=== PATIENT | male | born 1990 | race African-American/Black ===

== ENCOUNTER 2017-01-17 16:40 | Inpatient (IN) | payer SELFPAY ==
[~2017-01-17 16:40] MED LIST: Glycopyrrolate 0.2 MG/ML 5 ML SYRINGE ONE; PHENYLEPHRINE-NS 100 MCG/ML 10 ML SYRINGE ONE; Propofol 200 MG/20 ML VIAL ONE; Succinylcholine Chloride 20 MG/ML 10 ml SYRINGE FS ONE; ePHEDrine/0.9% NaCl/PF SYRINGE 50 mg/10 ml ONE
[2017-01-17] MEDS ORDERED: Iopamidol 370 76% 50 ML VIAL FS ONE (17:24)
[2017-01-17 17:31] LABS: #Basophils 0.1 thou/uL (0.0-0.2); #Eosinphils 0.1 thou/uL (0.0-0.7); #Monocytes 0.7 thou/uL (0.11-0.59); #Neutrophils 1.8 thou/uL (1.40-6.50); %Basophils 1.5 % (0.0-1.0); %Eosinophils 3.1 % (0.0-10.0); %Lymphocytes 42.1 % (21.0-51.0); %Monocytes 14.4 % (0.0-10.0); Hematocrit 50.1 % (42.0-52.0); Mean Platelet Volume 7.9 fL (7.4-10.4); Red Blood Cell (RBC) Count 5.19 mill/uL (4.70-6.10); White Blood Cell (WBC) Count 4.7 thou/uL (4.8-10.8)
[2017-01-17 17:49] LABS: ALT (SGPT) 11 U/L (8-55); AST (SGOT) 21 U/L (5-34); Alkaline Phosphatase 67 U/L (40-150); Anion Gap 11 mmol/L (10-20); BUN (Urea Nitrogen) 18 mg/dL (8.9-20.6); Bilirubin, Total 0.5 mg/dL (0.2-1.2); CK (CPK) 267 U/L (30-200); Calc. Creatinine Clearance 0 mL/min (70-130); Calcium 9.5 mg/dL (7.8-10.44); Carbon Dioxide 30 mmol/L (22-29); Chloride 103 mmol/L (98-107); Estimated GFR-MDRD Greater than 90; Globulin 3.1 g/dL (2.4-3.5); Protein, Total 7.2 g/dL (6.0-8.3)
--- NOTE | 2017-01-17 18:07 | CT ---
CT BRAIN WITHOUT CONTRAST: History: Altered mental status. Date: 01-17-17 FINDINGS: Noncontrast enhanced CT images of the brain obtained. Brain and bone windows obtained. The brain is unremarkable. No evidence of intracranial masses, hemorrhages, strokes or contusions see n. IMPRESSION: Normal CT brain. POS: [facility]
[2017-01-17] MEDS ORDERED: Aspirin 300 MG Suppository ONE (18:43)
[2017-01-17 18:53] LABS: PTT 25.3 SEC (22.9-36.1); Prothrombin Time 12.9 SEC (12.0-14.7)
--- NOTE | 2017-01-17 19:52 | RAD ---
AP PORTABLE CHEST: History: Stroke. Altered mental status. FINDINGS: The lungs are well aerated. No evidence of active intrathoracic disease is seen. No evidence of effus ions, pneumonia or pneumothorax seen. IMPRESSION: Unremarkable AP chest. POS: [facility]
--- NOTE | 2017-01-17 20:08 | CT ---
CONTRAST ENHANCED CTA OF CAROTID AND INTRACRANIAL CTA: Date: 01-17-17 Technique: 2D and 3D reconstructed images performed on an independent 3D work station. FINDINGS: The aortic arch is unremarkable. The right and left common carotid arteries are unremarkable. Right a nd left vertebral arteries are patent. The right and left internal carotid arteries are patent. [place] CTA: The anterior cerebral arteries bilaterally are patent. The right supraclinoid ICA and right middle ce rebral artery are patent. The left internal carotid artery is patent. There is occlusion of the M1 branch of the left middle ce rebral artery. Some flow does appear to pass into the M2 and M3 branches on the left. The posterior c erebral arteries are patent. The right posterior communicating artery is difficult to visualize. The left posterior communicating artery is seen. IMPRESSION: 1. Findings concerning for abrupt cut off and clot in the left middle cerebral artery M1 branch. 2. Findings discussed with Dr. Moncada at 7:15 p.m. 01-17-17. Code CR. ADDENDUM: Brain perfusion study. Brain perfusion evaluation was performed. There is an area of increased mean transit time involving m uch of the left temporal lobe as well as the deep central brain including the basal ganglion. There i s also some increased cerebral blood volume in the left temporal lobe suggesting an area of at risk p enumbra. Findings discussed with Dr. Willard Donaldson at 7:55 p.m. on 01-17-17. Code CR. POS: [facility]
[2017-01-17 20:24] LABS: Bilirubin Negative (Negative); Blood, Urine Negative (Negative); Glucose, Urine (Dipstick) Negative (Negative); Ketone, Urine Negative (Negative); Nitrite Negative (Negative); Protein, Urine (Dipstick) Negative (Neg-Trace)
[2017-01-17 20:34] LABS: Amphetamine Not Detected (NotDetected); Methadone Not Detected (NotDetected); Methamphetamine Not Detected (NotDetected)
--- NOTE | 2017-01-17 20:42 | PDOC.EVN ---
Event Note - Event Note Event Note: [id number] H&P Dictated 1. Acute CVA 2. Altered mental status plan: see orders
[2017-01-17] MEDS ORDERED: Acetaminophen 650 MG Suppository PR PRN (20:50)
[2017-01-17 22:44] VITALS: BMI 26.5
[2017-01-17] MEDS: Sodium Chloride 0.9% 1,000 ML IV SCH (23:30)
--- NOTE | 2017-01-17 23:38 | CON ---
DATE OF CONSULTATION: 01/17/2017 Mr. Castillo is a 26-year-old male that presented to the emergency department with altered mental sta tus and weakness. Per the report of his friends, he was [place] where he began to experience changes in speech and weakness in his extremities. He was brought to the ER where he und erwent a noncontrast head CT which was negative for hemorrhage. Subsequent to that, he underwent CT angiography of the brain which revealed the presence of thrombus in the the distal aspect of the left M1 division of the middle cerebral artery. I spoke with the ER doctor at that time and we agreed to pursue TPA. He was close to 3 hours from the time of onset when TPA was administered. I then spoke with Saul Jett who read the patient's CT perfusion study which suggested a fairly significant s izable penumbra. I then met with the patient in the ER. The TPA had been administered. He had show n already some fairly significant improvement in his neurologic exam. He was antigravity on the righ t side at this point. He was able to make some coherent speech. He could answer questions such as h is name and date of . It was clear he still had some components of expressive and perhaps legal secretary receptionist tive aphasia. His speech was slightly dysarthric and he had a right-sided facial droop. Overall, kimble bstantial improvement in his exam, but nonetheless someone may benefit from angiography and potential ly endovascular treatment. I spoke with Mr. Castillo as well his live in friends about his current diagnosis and planned procedu re. Of note, he has no living or known family. I explained the risks, benefits, and alternatives to treatment. The plan will be to move forward with diagnostic angiography and then if need be mechani shanna thrombectomy.
[2017-01-18 05:50] LABS: #Basophils 0.1 thou/uL (0.0-0.2); #Eosinphils 0.1 thou/uL (0.0-0.7); #Lymphocytes 1.8 thou/uL (1.20-3.40); #Monocytes 0.8 thou/uL (0.11-0.59); #Neutrophils 5.1 thou/uL (1.40-6.50); %Basophils 1.3 % (0.0-1.0); %Eosinophils 1.3 % (0.0-10.0); %Lymphocytes 22.2 % (21.0-51.0); %Monocytes 10.5 % (0.0-10.0); Hematocrit 44.3 % (42.0-52.0); Mean Platelet Volume 8.2 fL (7.4-10.4); Red Blood Cell (RBC) Count 4.59 mill/uL (4.70-6.10); White Blood Cell (WBC) Count 7.9 thou/uL (4.8-10.8)
--- NOTE | 2017-01-18 06:03 | HP ---
DATE OF ADMISSION: 01/17/2017 CHIEF COMPLAINT: Aphasia, dysarthria, right-sided weakness. HISTORY OF PRESENT ILLNESS: The patient is a 26-year-old male with no significant past medical history. The patient was with friends in outside and all of sudden, the patient started having confusion and trouble speaking and patient's right side was weak, so patient was brought to the ER. Symptoms started around 4:00 p.m. Upon ER arrival, the patient was found to have severe aphasia and dysarthria also, and right-sided weakness in upper and lower extremity, so patient had a CT head done which was negative. The patient had a CTA head and neck was done, which showed he has a left MCA clot, so patient was given tPA. The patient's initial NIH score was 13. Patient's current NIH score is 11. Patient denies any headache, denies any nausea. Denies any vomiting. PAST MEDICAL HISTORY: None. PAST SURGICAL HISTORY: None. SOCIAL HISTORY: None available from the patient as having trouble speaking. FAMILY HISTORY: No family members available at this time. Girlfriend is the only one available at the bedside, so not able to get much for the family history. MEDICATIONS: None. REVIEW OF SYSTEMS: Unavailable from the patient due to difficulty speaking. PHYSICAL EXAMINATION: CONSTITUTIONAL/VITAL SIGNS: At the time of H and P performed, blood pressure is 110/70, afebrile, pulse ox 97%. GENERAL: The patient appears comfortable. HEENT: Anterior naris patent. Tongue, no deviation seen. Teeth intact. NECK: Supple. No JVD. CARDIOVASCULAR: S1, S2 present. Regular rate and rhythm. RESPIRATORY SYSTEM: No wheezing, no rhonchi. Breath sounds bilaterally. GASTROINTESTINAL: Abdomen is soft, nontender. No guarding, no organomegaly. MUSCULOSKELETAL: No edema. CRANIAL NERVOUS SYSTEM: Positive for sejuxary-zx-ejxniv aphasia, positive for aqyfcqne-ay-uwkalw dysarthria. Positive for right upper extremity weakness, strength 3-4/5. NIH score around 11. Able to follow some commands. PSYCHIATRIC: Mood, calm at this time. LABORATORY AND DIAGNOSTIC DATA: At the time of H and P performed, white count 4.7, hemoglobin 16.7, platelet count is 175. PT 12.9, INR 1. BMP shows sodium 141, potassium 3.4, chloride 103, CO2 of 30, BUN 18, creatinine 0.86, glucose is 92. CT head, no acute stroke seen. CTA head and neck, positive for left MCA clot. ASSESSMENT AND PLAN: The patient is a 26-year-old male. 1. Acute cerebrovascular accident and left middle cerebral artery clot. ED physician spoke to the neurointerventionalist, neuroradiologist, and also neurologist. Patient is currently getting tPA. We will go ahead and admit patient to the ICU for close monitoring. We will hold off blood thinners, aspirin for now because the patient is just receiving tPA. We will resume in the morning. We will get PT, OT, speech therapy evaluation also. 2. Altered mental status probably secondary to the stroke, but we will go ahead and check a urine drug screen also and we will monitor the patient closely. The case was discussed in detail with the patient and patient's friends also and advised him to call the patient's family members. NARENDRA
[2017-01-18 06:17] LABS: Anion Gap 8 mmol/L (10-20); BUN (Urea Nitrogen) 10 mg/dL (8.9-20.6); Calc. Creatinine Clearance 153 mL/min (70-130); Calcium 8.6 mg/dL (7.8-10.44); Carbon Dioxide 25 mmol/L (22-29); Chloride 109 mmol/L (98-107); Cholesterol 120 mg/dl (< 200 Desired); Estimated GFR-MDRD Greater than 90; LDL Cholesterol, Calculated 55 mg/dL
[2017-01-18] MEDS ORDERED: Acetaminophen 325 MG TAB PO PRN (06:56)
[2017-01-18] MEDS ORDERED: Senokot 8.6 MG TAB PO PRN (06:56)
[2017-01-18] MEDS ORDERED: Diabetic Tussin 200 MG/10 ML UDCUP PO PRN (06:56)
[2017-01-18] MEDS ORDERED: Milk Of Magnesia 30 ML UDCUP PO PRN (06:56)
[2017-01-18] MEDS ORDERED: Ondansetron HCl/PF 4 MG/2 ML Vial IVP PRN (06:56)
[2017-01-18] MEDS ORDERED: Loratadine 10 MG TAB PO PRN (06:56)
[2017-01-18] MEDS ORDERED: hydrALAZINE 20 MG/ML VIAL SLOW IVP PRN (06:56)
[2017-01-18] MEDS ORDERED: Artificial Tears 18 DROP/0.9 ML EA EYE PRN (06:56)
[2017-01-18] MEDS ORDERED: Eucerin (Mineral Oil/Petrolatum,White) 30 gm Jar TOP PRN (06:56)
[2017-01-18] MEDS ORDERED: Ondansetron ODT 4 MG TAB PO PRN (06:56)
[2017-01-18] MEDS ORDERED: Chloraseptic Spray 180 ml Bottle PO PRN (06:56)
[2017-01-18] MEDS ORDERED: Mag-Al 1200 mg/1200 mg/30 ML UDCUP PO PRN (06:56)
[2017-01-18] MEDS ORDERED: Sodium Chloride 0.65% Nasal 44 ML BOT EA NARE PRN (06:56)
[2017-01-18] MEDS: Sodium Chloride 0.9% 1,000 ML IV SCH ×2 (09:05→18:37)
[2017-01-18] MEDS: Famotidine/PF 20 mg/2ml Vial SLOW IVP SCH ×2 (09:06→21:12)
--- NOTE | 2017-01-18 10:42 | CON ---
DATE OF CONSULTATION: 01/18/2017 This is a 26-year-old gentleman, rather unfortunate history, brought into the ER with acute mental st atus change, vomiting, and some weakness right-sided. Apparently he has been vomiting for several days as per the history additionally noted by the ER phys jerrod, Dr. Moncada. There is no history of any alcohol, drug abuse or tobacco abuse. MEDICATION: No medicine was listed on his list. EKG was abnormal. He was confused in the ER. EKG shows rather unusual pattern. Ventricular rate wa s 52. Unusual P-wave, abnormal T-wave. Apparently the case was discussed with Neurology and Neurosurgery. He was given Activase per protoco l and, he was taken to the Laser Set Up Operator by Dr. Donaldson for clot with , left middle cerebral artery isc hemic stroke. PHYSICAL EXAMINATION: GENERAL: This morning he is awake, responsive. VITAL SIGNS: Pulse 47, blood pressure 110/59, O2 saturation 100%. CHEST: Chest reveals decreased breath sounds, no wheezing. CARDIAC: Normal S1, S2. No gallops. ABDOMEN: Soft, no masses. LABORATORY: White count 7000, H&H 14 and 43, platelet count 160. Electrolytes are normal. Drug screen was positive for cannabinoids. IMPRESSION: 1. Altered mental status, status post t-PA. 2. CT angiographic revealed a thrombus in the distal middle cerebral artery which was retrieved by Elizabeth Donaldson. PLAN: Continue observation in the ICU. Low dose aspirin, supportive care. I will follow while in the ICU.
--- NOTE | 2017-01-18 11:00 | PDOC.PN ---
- Subjective Encounter Start Date: 01/18/17 Encounter Start Time: 09:10 -: non-verbal, old records requested/rev pt unable to speak, sister bedside, has right side weakness - Objective Resuscitation Status: Resuscitation Status FULL:Full Resuscitation MAR Reviewed: Yes Vital Signs & Weight: Vital Signs (12 hours) Temp Pulse Resp Pulse Ox 01/18/17 08:11 100 01/18/17 07:20 97.7 F 47 L 17 100 01/18/17 07:00 98.1 F 01/18/17 04:00 98.6 F 01/18/17 01:22 98 01/18/17 00:00 98.2 F 57 L 20 99 Most Recent Monitor Data Heart Rate from ECG 47 NIBP 107/66 NIBP BP-Mean 89 Respiration from ECG 13 SpO2 100 I&O: 01/17/17 01/18/17 01/19/17 06:59 06:59 06:59 Intake Total 783 0 Output Total 815 210 Balance -32 -210 Result Diagrams: 01/18/17 05:25 01/18/17 05:25 Radiology Reviewed by me: Yes (CT A brain) EKG Reviewed by me: Yes (NSR) Phys Exam - Physical Examination Constitutional: NAD HEENT: PERRLA, moist MMs, sclera anicteric Neck: no JVD, supple Respiratory: no wheezing, no rales, no rhonchi Cardiovascular: RRR, no significant murmur, no rub Gastrointestinal: soft, non-tender, no distention, positive bowel sounds Musculoskeletal: no edema, pulses present right side weakness, aphasia Lymphatic: no nodes Psychiatric: normal affect Skin: no rash, normal turgor Dx/Plan (1) Acute ischemic left middle cerebral artery (MCA) stroke Code(s): I63.512 - CEREB INFRC D/T UNSP OCCLS OR STENOS OF LEFT MID CEREB ART Status: Acute (2) Cannabis abuse Code(s): F12.10 - CANNABIS ABUSE, UNCOMPLICATED Status: Chronic (3) Hypokalemia Code(s): E87.6 - HYPOKALEMIA Status: Resolved - Plan cont current plan of care, plan discussed w/ family, PT/OT, oncology social work, speech therapy * will send hypercoagulable work up * will monitor in CCU till tomorrow * neurology consulted * MRI and echo. * check CORI, homocystein, RPR * discussed with sister * medication reviewed as below * symptomatic treatment Review of Systems - Review of Systems Other: unable to review as pt is aphasic - Medications/Allergies Allergies/Adverse Reactions: Allergies Allergy/AdvReac Type Severity Reaction Status Date / Time No Known Drug Allergies Allergy Verified 01/17/17 21:29 Medications: Current Medications Acetaminophen (Tylenol) 650 mg AK Q6H PRN PRN Reason: Headache/Fever or Pain Acetaminophen (Tylenol) 650 mg PO Q4H PRN PRN Reason: Headache/Fever or Mild Pain Al Hydroxide/Mg Hydroxide (Maalox) 15 ml PO Q4H PRN PRN Reason: Heartburn or Indigestion Artificial Tears (Tears Naturale) 0 drop EA EYE PRN PRN PRN Reason: Dry Eyes Famotidine (Pepcid) 20 mg SLOW IVP Q12HR [facility] Last Admin: 01/18/17 09:06 Dose: 20 mg Guaifenesin (Robitussin Sf) 200 mg PO Q4H PRN PRN Reason: Cough Hydralazine HCl (Apresoline) 10 mg SLOW IVP Q4H PRN PRN Reason: Systolic BP > 180 Sodium Chloride (Normal Saline 0.9%) 1,000 mls @ 100 mls/hr IV .Q10H [facility] Last Admin: 01/18/17 09:05 Dose: 1,000 mls Influenza Virus Vaccine (Fluzone Quad [id number] Syringe) 0.5 ml IM .ONCE ONE Stop: 01/18/17 21:01 Loratadine (Claritin) 10 mg PO DAILYPRN PRN PRN Reason: Sinus Symptoms Magnesium Hydroxide (Milk Of Magnesium) 30 ml PO DAILYPRN PRN PRN Reason: Constipation Mineral Oil/White Petrolatum (Eucerin Cream) 0 gm TOP BIDPRN PRN PRN Reason: Dry Skin Ondansetron HCl (Zofran Odt) 4 mg PO Q6H PRN PRN Reason: Nausea/Vomiting Ondansetron HCl (Zofran) 4 mg IVP Q6H PRN PRN Reason: Nausea/Vomiting Phenol (Chloraseptic [place] 180 Ml Bot) 0 ml PO PRN PRN PRN Reason: Sore Throat Senna (Senokot) 2 tab PO HSPRN PRN PRN Reason: Constipation Sodium Chloride (Labette Nasal [place] 0.65%) 0 ml EA NARE QIDPRN PRN PRN Reason: Nasal Congestion Sodium Chloride (Flush - Normal Saline) 10 ml IVF Q12HR [facility] Sodium Chloride (Flush - Normal Saline) 10 ml IVF PRN PRN PRN Reason: Saline Flush
--- NOTE | 2017-01-18 14:01 | CCL ---
RADIOLOGY PROCEDURE NOTE: DATE: 01/17/17. SURGEON: Kaushik Donaldson M.D. CAREER TECHNICAL EDUCATION TEACHER: None. INDICATION: Ischemic stroke. DIAGNOSIS: Left middle cerebral artery with thrombus with ischemic stroke. PROCEDURE: Diagnostic cerebral angiogram with mechanical thrombectomy. ANESTHESIA: General. TECHNIQUE: The patient was brought into the angiogram suite and placed on the table in the supine position. Both groins were prepped and draped in the usual sterile fashion. 1% lidocaine was used to inject the right groin. A 5 Somali micropuncture set was used to gain access to the right common femoral artery. Using the Seldinger technique, the needle was removed and an 8 Somali sheath was placed. A 5 Somali diagnostic catheter was passed through the sheath and an angiogram was performed from the left internal carotid artery which revealed the presence of persistent left M1 division MCA clot with no distal reconstitution. An 8 Somali concentric guide was then placed within the left internal carotid artery. A microcatheter was placed over a transcend guidewire which was then placed into the left MCA at the level of the M1-M2 division. A Trevo device was deployed twice. After the second deployment, there was mu-ism of flow and removal of the clot. There was a small amount of thrombus left within the distal M1 vessel that was not flow-limiting. All catheters were then removed. The sheath was sewn into place secondary to TPA administration. The procedure came to an end without complication. POS: [facility]
--- NOTE | 2017-01-18 14:59 | MRI ---
MRI BRAIN WITHOUT CONTRAST: Technique: Multiplanar, multisequence imaging of the brain obtained. History: CVA. Altered mental status. Comparison: CT angio performed last night reveals partial occlusion of the M1 segment on the left. Pe rfusion scan showed evidence of left hemispheric ischemia. FINDINGS: There is motion artifact on all sequences. On the diffusion weighted images there is evidence of restricted diffusion involving the peripheral b federica ganglia on the left. This appears to involve the posterior aspect of the lentiform nuclear and e xtends superiorly into the left periventricular white matter. Findings are consistent with a deep inf arct in the left MCA territory. There is mild increase signal in this region on FLAIR sequence. No other mass or edema. The intracranial internal carotid arteries show flow voids. Basilar artery and proximal cerebral mavis noemy show flow voids. IMPRESSION: Evidence of acute infarct in the basal ganglia and deep white matter left cerebral hemisphere in the left MCA territory. POS: [facility]
[2017-01-18] MEDS ORDERED: Atropine Sulfate 1 mg/10 ml Syringe ONE (19:41)
--- NOTE | 2017-01-18 20:14 | CON ---
DATE OF CONSULTATION: 01/18/2017 Mr. Castillo is an unfortunate 26-year-old male who had a thrombotic CVA yesterday. He went to the c atheterization lab with Neurosurgery. He also had TPA. He is now on the Critical Care Unit. PAST MEDICAL HISTORY: Otherwise unremarkable. SOCIAL HISTORY: There is no history of drugs or heavy tobacco use, I am aware of. PHYSICAL EXAMINATION: GENERAL: He is aphasic today and follows commands with his right side but moves a little wrong at ri ght side spontaneously. VITAL SIGNS: Blood pressure 110/69. Currently, heart rate is 49, respiratory rate is in the teens. He is in no distress. LUNGS: Completely clear. HEART: Regular rhythm. ABDOMEN: Soft and nontender. He has gone down for an MRI today which shows an acute infarct in the basal ganglia and deep white ma tter in the left cerebral hemisphere and the middle cerebral artery territory. IMPRESSION: Thrombotic cerebrovascular accident, status post percutaneous intervention as well as TP A, protecting his airway adequately now. Hopefully, he will have some functional recovery from this. He will remain in the Critical Care Unit.
[2017-01-18] MEDS ORDERED: FLU VACC QS2017-18 36 mo. & older 0.5 ML SYRINGE IM ONE (21:00)
--- NOTE | 2017-01-18 21:43 | CON ---
DATE OF CONSULTATION: 01/18/2017 CONSULTING PHYSICIAN: Hospitalist Service. IMPRESSION: Left middle cerebral artery stroke with subsequent basal ganglia ischemic injury without an apparent etiology. PLAN: 1. Consult Cardiology for transesophageal echo. 2. Await results of thrombosis panel. 3. Start antiplatelet therapy after the 24-hour interval from the TPA. Ms. Castillo is a 26-year-old black gentleman with no past medical history. He was planning on when he suddenly developed weakness on his right side and had difficulty speaking, was brought t o the emergency room for evaluation. His CTA revealed evidence of an M1 segment occlusion. He was g iven TPA while within the window. He was later taken to the quality assurance qa lab analyst by Dr. Donaldson and underwent a ME RCI procedure. His MRI today revealed evidence of some basal ganglia ischemia on the left. His echo cardiogram does not show source of emboli. His lab work was otherwise unremarkable. His drug screen was negative for cocaine and methamphetamine. FAMILY HISTORY: Negative for sickle cell. PAST MEDICAL HISTORY: Unremarkable other than knee surgery. ALLERGIES: None reported. MEDICATIONS: None. REVIEW OF SYSTEMS: No complaint of headache, nausea, vomiting, or dizziness. PHYSICAL EXAMINATION: GENERAL: He is a healthy appearing young man in no distress. VITAL SIGNS: Blood pressure 107/66, pulse 54, respirations 16, saturations 100%. HEENT: Pupils are equal and reactive. Conjunctivae clear. Oropharynx clear. NECK: No lymphadenopathy. EXTREMITIES: No cyanosis, clubbing, or edema. NEUROLOGIC: Alert and cooperative. He followed commands reasonably well. He was limitedly verbal, but appeared to have relatively clear speech. His face appeared to be symmetric for the most part wi th only subtle droop. Motor exam showed no movement on the right side that I could be elicited at th is point, although the nurse said he had antigravity strength earlier, plantar responses upgoing on t he right, downgoing on the left. Gait is not testable. No abnormal movements were seen. SUMMARY: This is an unfortunate young man who suffered a thrombus in left M1 segment, all efforts centeno ve been undertaken, but unfortunately, he still has some neurologic deficits. The MRI would suggest that he primarily lost deep penetrator blood flow. Hopefully, he will recover with a bit of time.
[2017-01-19] MEDS: Sodium Chloride 0.9% 1,000 ML IV SCH (05:08)
[2017-01-19 05:19] LABS: PTT 27.2 SEC (22.9-36.1); Prothrombin Time 14.5 SEC (12.0-14.7)
[2017-01-19] MEDS: Famotidine/PF 20 mg/2ml Vial SLOW IVP SCH ×2 (08:26→21:22)
--- NOTE | 2017-01-19 09:01 | CT ---
PRELIMINARY REPORT/[facility]/EMERGENCY AFTER HOURS PROCEDURE: EXAM: CT Head Without Intravenous Contrast CLINICAL HISTORY: 26 years old, male; Condition or disease; Other: F/u left mca TECHNIQUE: Axial computed tomography images of the head/brain without intravenous contrast. COMPARISON: CT Brain WO Con 2017-01-17 17:51 FINDINGS: Interval development of edema in the left basal ganglia/internal capsule with minimal mass effect on the left lateral ventricle. Question mild edema in the anterior left temporal lobe and insula. No def inite hemorrhage, midline shift or hydrocephalus. The calvarium is intact The paranasal sinuses and mastoid cavities are grossly clear IMPRESSION: Evolving acute/subacute left basal ganglia and temporal infarctions in the left MCA territory No definite hemorrhagic conversion Thank you for allowing us to participate in the care of your patient. Dictated and Authenticated by: Alonso Rosa MD 01/19/2017 5:19 AM Central Time ([place] & [place]) FINAL REPORT EMERGENCY AFTER HOURS CT OF THE BRAIN WITHOUT CONTRAST: Comparison: MRI brain 01-18-17 FINDINGS/IMPRESSION: I agree with the findings and impression given in the preliminary report by [facility] physician. There is an evolving infarction in the left basal ganglia. No hemorrhage is seen at this time. POS: [facility]
--- NOTE | 2017-01-19 09:41 | PRG ---
DATE OF SERVICE: 01/19/2017 This morning Speech is seeing him. He is choking on his food. PHYSICAL EXAMINATION: VITAL SIGNS: Blood pressure 124/60, pulse 85, O2 sat 90%, respirations 16. CHEST: Chest revealed decreased breath sounds without any wheezing. CARDIAC: Normal S1-S2. No gallops. ABDOMEN: Soft. No masses. LABORATORY: His CT of his head shows evidence of left middle cerebral artery distribution infarct. IMPRESSION: 1. Left-sided cerebrovascular accident with residual left-sided weakness. 2. Dysphagia. PLAN: Continue supportive care, PT, aspirin. We will follow.
--- NOTE | 2017-01-19 10:25 | PRG ---
DATE OF SERVICE: 01/18/2017 SUBJECTIVE: Mr. Castillo is 1 day status post thrombolysis with TPA and mechanical thrombectomy. He was extubated after his procedure and was placed in the ICU. He is resting comfortably and stable in the ICU. He continues to have persistent aphasia and right hemiparesis. There are plans for imaging this morning. He has his right femoral sheath in place, which was left in due to tPA administration. That can be removed this afternoon. Need to continue to progress through our stroke risk stratification protocols. Neurosurgery service will continue to follow along as the hospital service will maintain control as primary service. NARENDRA
--- NOTE | 2017-01-19 11:18 | PRG ---
DATE OF SERVICE: 01/19/2017 Mr. Castillo did well overnight. He answered questions in 1 word sentences, yes, no and fine. Today he is still right hemiplegia. PHYSICAL EXAMINATION: LUNGS; His lungs are clear. CARDIOVASCULAR: Regular rhythm. ABDOMEN: Soft. Most of his hypercoagulable state panel is still pending. IMPRESSION: Thrombotic cerebrovascular accident. Would wonder about a hypercoagulable state.
[2017-01-19] MEDS: NS 0.9% w/ 20 MEQ KCL 1,000 ML/1,000 ML BAG IV SCH ×2 (11:49→22:19)
--- NOTE | 2017-01-19 12:31 | PDOC.PN ---
- Subjective Encounter Start Date: 01/19/17 Encounter Start Time: 07:15 pt is able to talk few word, he still has weakness on right side, stable otherwise - Objective Resuscitation Status: Resuscitation Status FULL:Full Resuscitation MAR Reviewed: Yes Vital Signs & Weight: Vital Signs (12 hours) Temp Pulse Resp BP Pulse Ox 01/19/17 11:50 98.6 F 81 18 145/85 H 94 L 01/19/17 10:30 98.6 F 53 L 18 115/65 98 01/19/17 08:00 98.3 F 01/19/17 07:31 98.1 F 49 L 15 100 01/19/17 05:00 98.4 F 01/19/17 04:19 98 Weight Weight 153 lb 0.013 oz Most Recent Monitor Data Heart Rate from ECG 54 NIBP 107/63 NIBP BP-Mean 82 Respiration from ECG 15 SpO2 97 I&O: 01/18/17 01/19/17 01/20/17 06:59 06:59 06:59 Intake Total 783 1401 361 Output Total 815 1943 295 Balance -32 -542 66 Result Diagrams: 01/18/17 05:25 01/18/17 05:25 Radiology Reviewed by me: Yes (CT brain) EKG Reviewed by me: Yes (NSR) Phys Exam - Physical Examination Constitutional: NAD HEENT: PERRLA, moist MMs, sclera anicteric Neck: no JVD, supple Respiratory: no wheezing, no rales, no rhonchi Cardiovascular: RRR, no significant murmur, no rub Gastrointestinal: soft, non-tender, no distention, positive bowel sounds Musculoskeletal: no edema, pulses present right side weakness Lymphatic: no nodes Psychiatric: normal affect Skin: no rash, normal turgor Dx/Plan (1) Acute ischemic left middle cerebral artery (MCA) stroke Code(s): I63.512 - CEREB INFRC D/T UNSP OCCLS OR STENOS OF LEFT MID CEREB ART Status: Acute (2) Cannabis abuse Code(s): F12.10 - CANNABIS ABUSE, UNCOMPLICATED Status: Chronic (3) Hypokalemia Code(s): E87.6 - HYPOKALEMIA Status: Resolved - Plan cont current plan of care, PT/OT, social work program coordinator, speech therapy, DVT proph w/ lovenox * transfer to stroke floor * continue stroke team evaluation * TTE is normal and no murmur on exam, doubt GLENYS will help * await hypercoagulable work up * start aspirin, lipitor and lisinopril * start lovenox for DVT prophylaxis * will need rehab on discharge * continue IVF with potassium * diet as tolerated per speech * medication reviewed as below * symptomatic treatment. Review of Systems - Review of Systems Constitutional: negative: Fever, Chills, Sweats, Weakness, Malaise, Other ENT: negative: Ear Pain, Ear Discharge, Nose Pain, Nose Discharge, Nose Congestion, Mouth Pain, Mouth Swelling, Throat Pain, Throat Swelling, Other Respiratory: negative: Cough, Dry, Shortness of Breath, Hemoptysis, SOB with Excertion, Pleuritic Pain, Sputum, Wheezing Cardiovascular: negative: Chest Pain, Palpitations, Orthopnea, Paroxysmal Noc. Dyspnea, Edema, Light Headedness, Other Gastrointestinal: negative: Nausea, Vomiting, Abdominal Pain, Diarrhea, Constipation, Melena, Hematochezia, Other Genitourinary: negative: Dysuria, Frequency, Incontinence, Hematuria, Retention , Other Musculoskeletal: negative: Neck Pain, Shoulder Pain, Arm Pain, Back Pain, Hand Pain, Leg Pain, Foot Pain, Other Skin: negative: Rash, Lesions, Regan, Bruising, Other Neurological: Weakness, Change in Speech. negative: Numbness, Incoordination, Confusion, Seizures, Other - Medications/Allergies Allergies/Adverse Reactions: Allergies Allergy/AdvReac Type Severity Reaction Status Date / Time No Known Drug Allergies Allergy Verified 01/17/17 21:29 Medications: Current Medications Acetaminophen (Tylenol) 650 mg IN Q6H PRN PRN Reason: Headache/Fever or Pain Acetaminophen (Tylenol) 650 mg PO Q4H PRN PRN Reason: Headache/Fever or Mild Pain Al Hydroxide/Mg Hydroxide (Maalox) 15 ml PO Q4H PRN PRN Reason: Heartburn or Indigestion Artificial Tears (Tears Naturale) 0 drop EA EYE PRN PRN PRN Reason: Dry Eyes Famotidine (Pepcid) 20 mg SLOW IVP Q12HR [facility] Last Admin: 01/19/17 08:26 Dose: 20 mg Guaifenesin (Robitussin Sf) 200 mg PO Q4H PRN PRN Reason: Cough Hydralazine HCl (Apresoline) 10 mg SLOW IVP Q4H PRN PRN Reason: Systolic BP > 180 Potassium Chloride/Sodium Chloride (Ns 0.9% W/ 20 Meq Kcl) 1,000 ml in 1,000 mls @ 100 mls/hr IV .Q10H [facility] Last Admin: 01/19/17 11:49 Dose: 1,000 mls Loratadine (Claritin) 10 mg PO DAILYPRN PRN PRN Reason: Sinus Symptoms Magnesium Hydroxide (Milk Of Magnesium) 30 ml PO DAILYPRN PRN PRN Reason: Constipation Mineral Oil/White Petrolatum (Eucerin Cream) 0 gm TOP BIDPRN PRN PRN Reason: Dry Skin Ondansetron HCl (Zofran Odt) 4 mg PO Q6H PRN PRN Reason: Nausea/Vomiting Ondansetron HCl (Zofran) 4 mg IVP Q6H PRN PRN Reason: Nausea/Vomiting Phenol (Chloraseptic [place] 180 Ml Bot) 0 ml PO PRN PRN PRN Reason: Sore Throat Senna (Senokot) 2 tab PO HSPRN PRN PRN Reason: Constipation Sodium Chloride ([place] Nasal [place] 0.65%) 0 ml EA NARE QIDPRN PRN PRN Reason: Nasal Congestion Sodium Chloride (Flush - Normal Saline) 10 ml IVF Q12HR [facility] Last Admin: 01/19/17 08:26 Dose: 10 ml Sodium Chloride (Flush - Normal Saline) 10 ml IVF PRN PRN PRN Reason: Saline Flush
[2017-01-19 14:37] LABS: Protein C Activity 107 % (78-152)
[2017-01-19] MEDS: Atorvastatin Calcium 10 MG TAB PO SCH (21:22)
[2017-01-20] MEDS: NS 0.9% w/ 20 MEQ KCL 1,000 ML/1,000 ML BAG IV SCH ×2 (07:18→21:14)
[2017-01-20] MEDS ORDERED: Loperamide HCl 2 MG CAP PO PRN (08:12)
[2017-01-20] MEDS ORDERED: HYDROcodone/Acetaminophen 5/325 mg Tablet PO PRN (08:12)
--- NOTE | 2017-01-20 10:06 | PDOC.PN ---
- Subjective Encounter Start Date: 01/20/17 Encounter Start Time: 07:20 Patient seen and examined. No new complaints. No overnight events - Objective Resuscitation Status: Resuscitation Status FULL:Full Resuscitation MAR Reviewed: Yes Vital Signs & Weight: Vital Signs (12 hours) Temp Pulse Resp BP Pulse Ox 01/20/17 08:00 98.3 F 50 L 18 127/72 98 01/20/17 04:22 98.5 F 57 L 16 125/65 01/19/17 23:57 98.5 F 55 L 16 123/70 98 Weight Weight 161 lb 4.8 oz Most Recent Monitor Data Heart Rate from ECG 54 NIBP 107/63 NIBP BP-Mean 82 Respiration from ECG 15 SpO2 97 I&O: 01/19/17 01/20/17 01/21/17 06:59 06:59 06:59 Intake Total 1401 1461 Output Total 1943 1895 Balance -542 -434 Result Diagrams: 01/18/17 05:25 01/18/17 05:25 EKG Reviewed by me: Yes (nsr) Phys Exam - Physical Examination Constitutional: NAD HEENT: PERRLA, moist MMs, sclera anicteric Neck: no nodes, no JVD, supple Respiratory: no wheezing, no rales, no rhonchi Cardiovascular: RRR, no significant murmur, no rub Gastrointestinal: soft, non-tender, no distention, positive bowel sounds Musculoskeletal: no edema, pulses present right side weakness Lymphatic: no nodes Psychiatric: normal affect Skin: no rash, normal turgor Dx/Plan (1) Acute ischemic left middle cerebral artery (MCA) stroke Code(s): I63.512 - CEREB INFRC D/T UNSP OCCLS OR STENOS OF LEFT MID CEREB ART Status: Acute (2) Cannabis abuse Code(s): F12.10 - CANNABIS ABUSE, UNCOMPLICATED Status: Chronic (3) Hypokalemia Code(s): E87.6 - HYPOKALEMIA Status: Resolved - Plan cont current plan of care, plan discussed w/ family, PT/OT, social work nurse, speech therapy * cardiology consulted for GLENYS * medication reviewed as below * symptomatic treatment * await hypercoagulable work up * discussed with family member * eventual placement to rehab. * stroke team Review of Systems - Review of Systems Constitutional: negative: Fever, Chills, Sweats, Weakness, Malaise, Other ENT: negative: Ear Pain, Ear Discharge, Nose Pain, Nose Discharge, Nose Congestion, Mouth Pain, Mouth Swelling, Throat Pain, Throat Swelling, Other Respiratory: negative: Cough, Dry, Shortness of Breath, Hemoptysis, SOB with Excertion, Pleuritic Pain, Sputum, Wheezing Cardiovascular: negative: Chest Pain, Palpitations, Orthopnea, Paroxysmal Noc. Dyspnea, Edema, Light Headedness, Other Gastrointestinal: negative: Nausea, Vomiting, Abdominal Pain, Diarrhea, Constipation, Melena, Hematochezia, Other Genitourinary: negative: Dysuria, Frequency, Incontinence, Hematuria, Retention , Other Musculoskeletal: negative: Neck Pain, Shoulder Pain, Arm Pain, Back Pain, Hand Pain, Leg Pain, Foot Pain, Other Skin: negative: Rash, Lesions, Regan, Bruising, Other Neurological: Weakness, Change in Speech. negative: Numbness, Incoordination, Confusion, Seizures, Other - Medications/Allergies Allergies/Adverse Reactions: Allergies Allergy/AdvReac Type Severity Reaction Status Date / Time No Known Drug Allergies Allergy Verified 01/17/17 21:29 Medications: Current Medications Acetaminophen (Tylenol) 650 mg PO Q4H PRN PRN Reason: Headache/Fever or Mild Pain Hydrocodone Bitart/Acetaminophen ([place] 5/325) 1 tab PO Q4H PRN PRN Reason: Moderate Pain (4-6) Al Hydroxide/Mg Hydroxide (Maalox) 15 ml PO Q4H PRN PRN Reason: Heartburn or Indigestion Artificial Tears (Tears Naturale) 0 drop EA EYE PRN PRN PRN Reason: Dry Eyes Aspirin (Aspirin) 325 mg PO DAILY [facility] Atorvastatin Calcium (Lipitor) 10 mg PO HS [facility] Last Admin: 01/19/17 21:22 Dose: 10 mg Enoxaparin Sodium (Lovenox) 40 mg SC 0900 [facility] Famotidine (Pepcid) 20 mg PO BID [facility] Guaifenesin (Robitussin Sf) 200 mg PO Q4H PRN PRN Reason: Cough Hydralazine HCl (Apresoline) 10 mg SLOW IVP Q4H PRN PRN Reason: Systolic BP > 180 Potassium Chloride/Sodium Chloride (Ns 0.9% W/ 20 Meq Kcl) 1,000 ml in 1,000 mls @ 100 mls/hr IV .Q10H [facility] Last Admin: 01/20/17 07:18 Dose: 1,000 mls Lisinopril (Zestril) 2.5 mg PO DAILY [facility] Loperamide HCl (Imodium) 2 mg PO PRN PRN PRN Reason: Diarrhea/Loose Stools Loratadine (Claritin) 10 mg PO DAILYPRN PRN PRN Reason: Sinus Symptoms Magnesium Hydroxide (Milk Of Magnesium) 30 ml PO DAILYPRN PRN PRN Reason: Constipation Mineral Oil/White Petrolatum (Eucerin Cream) 0 gm TOP BIDPRN PRN PRN Reason: Dry Skin Ondansetron HCl (Zofran Odt) 4 mg PO Q6H PRN PRN Reason: Nausea/Vomiting Ondansetron HCl (Zofran) 4 mg IVP Q6H PRN PRN Reason: Nausea/Vomiting Phenol (Chloraseptic [place] 180 Ml Bot) 0 ml PO PRN PRN PRN Reason: Sore Throat Last Admin: 01/19/17 22:55 Dose: 1 spr Senna (Senokot) 2 tab PO HSPRN PRN PRN Reason: Constipation Sodium Chloride ([place] Nasal [place] 0.65%) 0 ml EA NARE QIDPRN PRN PRN Reason: Nasal Congestion Sodium Chloride (Flush - Normal Saline) 10 ml IVF Q12HR [facility] Last Admin: 01/19/17 21:22 Dose: 10 ml Sodium Chloride (Flush - Normal Saline) 10 ml IVF PRN PRN PRN Reason: Saline Flush
--- NOTE | 2017-01-20 11:52 | PRG ---
DATE OF SERVICE: 01/20/2017 SUBJECTIVE: This is an unfortunate gentleman status post tPA, status post BENT[place] procedure. He has h ad right-sided weakness and dysphagia. PHYSICAL EXAMINATION: VITAL SIGNS: Blood pressure 127/72, O2 saturation 97% on room air, pulse 50, temperature 98. CHEST: No wheezing. CARDIAC: Normal S1, S2. ABDOMEN: Soft, no masses. IMPRESSION: Cerebrovascular accident. PLAN: Supportive care, PT. We will follow at a distance. Please call Pulmonary as needed.
[2017-01-20] MEDS: Famotidine 20 MG TAB PO SCH ×2 (13:21→21:15)
[2017-01-20] MEDS: Aspirin 325 MG TAB PO SCH (13:21)
[2017-01-20] MEDS: Lisinopril 2.5 MG TAB PO SCH (13:21)
[2017-01-20] MEDS: Enoxaparin Sodium 40 MG/0.4 ML SYRINGE SC SCH (13:21)
[2017-01-20] MEDS: Atorvastatin Calcium 10 MG TAB PO SCH (21:15)
[2017-01-21] MEDS: NS 0.9% w/ 20 MEQ KCL 1,000 ML/1,000 ML BAG IV SCH (06:30)
[2017-01-21] MEDS: Lisinopril 2.5 MG TAB PO SCH (08:09)
[2017-01-21] MEDS: Famotidine 20 MG TAB PO SCH ×2 (08:10→20:49)
[2017-01-21] MEDS: Aspirin 325 MG TAB PO SCH (08:10)
[2017-01-21] MEDS: Enoxaparin Sodium 40 MG/0.4 ML SYRINGE SC SCH ×2 (08:10→13:22)
--- NOTE | 2017-01-21 10:01 | PDOC.PN ---
- Subjective Encounter Start Date: 01/21/17 Encounter Start Time: 07:30 Patient seen and examined. No new complaints. No overnight events - Objective Resuscitation Status: Resuscitation Status FULL:Full Resuscitation MAR Reviewed: Yes Vital Signs & Weight: Vital Signs (12 hours) Temp Pulse Resp BP BP Pulse Ox 01/21/17 08:09 53 L 119/70 01/21/17 07:37 97.5 F L 53 L 20 119/70 98 01/21/17 03:34 98.6 F 52 L 20 117/65 98 01/20/17 23:40 98.5 F 64 16 108/67 99 Weight Weight 161 lb 4.8 oz Most Recent Monitor Data Heart Rate from ECG 54 NIBP 107/63 NIBP BP-Mean 82 Respiration from ECG 15 SpO2 97 I&O: 01/20/17 01/21/17 01/22/17 06:59 06:59 06:59 Intake Total 1461 2040 Output Total 1895 2350 Balance -434 -310 Result Diagrams: 01/18/17 05:25 01/18/17 05:25 EKG Reviewed by me: Yes (nsr) Phys Exam - Physical Examination Constitutional: NAD HEENT: PERRLA, moist MMs, sclera anicteric Neck: no JVD, supple Respiratory: no wheezing, no rales, no rhonchi Cardiovascular: RRR, no significant murmur, no rub Gastrointestinal: soft, non-tender, no distention, positive bowel sounds Musculoskeletal: no edema, pulses present right side weakness, aphasia Lymphatic: no nodes Psychiatric: normal affect Skin: no rash, normal turgor Dx/Plan (1) Acute ischemic left middle cerebral artery (MCA) stroke Code(s): I63.512 - CEREB INFRC D/T UNSP OCCLS OR STENOS OF LEFT MID CEREB ART Status: Acute (2) Cannabis abuse Code(s): F12.10 - CANNABIS ABUSE, UNCOMPLICATED Status: Chronic (3) Hypokalemia Code(s): E87.6 - HYPOKALEMIA Status: Resolved - Plan cont current plan of care, PT/OT, social service manager, speech therapy, DVT proph w/ lovenox * DC [place] * DC IVF * diet as per speech * medication reviewed as below * symptomatic treatment * await rehab placement * today GLENYS. Review of Systems - Review of Systems Constitutional: negative: Fever, Chills, Sweats, Weakness, Malaise, Other ENT: negative: Ear Pain, Ear Discharge, Nose Pain, Nose Discharge, Nose Congestion, Mouth Pain, Mouth Swelling, Throat Pain, Throat Swelling, Other Respiratory: negative: Cough, Dry, Shortness of Breath, Hemoptysis, SOB with Excertion, Pleuritic Pain, Sputum, Wheezing Cardiovascular: negative: Chest Pain, Palpitations, Orthopnea, Paroxysmal Noc. Dyspnea, Edema, Light Headedness, Other Gastrointestinal: negative: Nausea, Vomiting, Abdominal Pain, Diarrhea, Constipation, Melena, Hematochezia, Other Genitourinary: negative: Dysuria, Frequency, Incontinence, Hematuria, Retention , Other Musculoskeletal: negative: Neck Pain, Shoulder Pain, Arm Pain, Back Pain, Hand Pain, Leg Pain, Foot Pain, Other Skin: negative: Rash, Lesions, Regan, Bruising, Other Neurological: Weakness - Medications/Allergies Allergies/Adverse Reactions: Allergies Allergy/AdvReac Type Severity Reaction Status Date / Time No Known Drug Allergies Allergy Verified 01/17/17 21:29 Medications: Current Medications Acetaminophen (Tylenol) 650 mg PO Q4H PRN PRN Reason: Headache/Fever or Mild Pain Hydrocodone Bitart/Acetaminophen ([place] 5/325) 1 tab PO Q4H PRN PRN Reason: Moderate Pain (4-6) Al Hydroxide/Mg Hydroxide (Maalox) 15 ml PO Q4H PRN PRN Reason: Heartburn or Indigestion Artificial Tears (Tears Naturale) 0 drop EA EYE PRN PRN PRN Reason: Dry Eyes Aspirin (Aspirin) 325 mg PO DAILY [facility] Last Admin: 01/21/17 08:10 Dose: 325 mg Atorvastatin Calcium (Lipitor) 10 mg PO HS [facility] Last Admin: 01/20/17 21:15 Dose: 10 mg Enoxaparin Sodium (Lovenox) 40 mg SC 0900 [facility] Last Admin: 01/20/17 13:21 Dose: 40 mg Famotidine (Pepcid) 20 mg PO BID [facility] Last Admin: 01/21/17 08:10 Dose: 20 mg Guaifenesin (Robitussin Sf) 200 mg PO Q4H PRN PRN Reason: Cough Hydralazine HCl (Apresoline) 10 mg SLOW IVP Q4H PRN PRN Reason: Systolic BP > 180 Lisinopril (Zestril) 2.5 mg PO DAILY [facility] Last Admin: 01/21/17 08:09 Dose: 2.5 mg Loperamide HCl (Imodium) 2 mg PO PRN PRN PRN Reason: Diarrhea/Loose Stools Loratadine (Claritin) 10 mg PO DAILYPRN PRN PRN Reason: Sinus Symptoms Magnesium Hydroxide (Milk Of Magnesium) 30 ml PO DAILYPRN PRN PRN Reason: Constipation Mineral Oil/White Petrolatum (Eucerin Cream) 0 gm TOP BIDPRN PRN PRN Reason: Dry Skin Ondansetron HCl (Zofran Odt) 4 mg PO Q6H PRN PRN Reason: Nausea/Vomiting Ondansetron HCl (Zofran) 4 mg IVP Q6H PRN PRN Reason: Nausea/Vomiting Phenol (Chloraseptic [place] 180 Ml Bot) 0 ml PO PRN PRN PRN Reason: Sore Throat Last Admin: 01/19/17 22:55 Dose: 1 spr Senna (Senokot) 2 tab PO HSPRN PRN PRN Reason: Constipation Sodium Chloride ([place] Nasal [place] 0.65%) 0 ml EA NARE QIDPRN PRN PRN Reason: Nasal Congestion Sodium Chloride (Flush - Normal Saline) 10 ml IVF Q12HR [facility] Last Admin: 01/21/17 08:10 Dose: 10 ml Sodium Chloride (Flush - Normal Saline) 10 ml IVF PRN PRN PRN Reason: Saline Flush
--- NOTE | 2017-01-21 11:00 | ECHO ---
TRANSESOPHAGEAL ECHOCARDIOGRAM: DATE OF PROCEDURE: 01/21/17 INDICATION: 26-year-old gentleman with a CVA> DESCRIPTION OF PROCEDURE: The patient was taken to the PACU. The patient was sedated by anesthesiology. A transesophageal probe was placed in the distal esophagus and stomach. Echocardiographic images were obtained. Contrast bubble exam was performed. Th e transesophageal probe was removed. FINDINGS: 1. Normal left ventricular systolic function. 2. Normal mitral and aortic valves. 3. Left ventricle is not dilated. 4. No thrombus was noted in the left atrium or left atrial appendage. 5. No PFO was noted by color Doppler or contrast bubble exam. IMPRESSION: No PFO noted.
[2017-01-21] MEDS ORDERED: Propofol 200 MG/20 ML VIAL ONE (15:07)
[2017-01-21] MEDS: Atorvastatin Calcium 10 MG TAB PO SCH (20:49)
[2017-01-22] MEDS: Aspirin 325 MG TAB PO SCH (10:08)
[2017-01-22] MEDS: Famotidine 20 MG TAB PO SCH ×2 (10:08→20:42)
[2017-01-22] MEDS: Lisinopril 2.5 MG TAB PO SCH (10:08)
[2017-01-22] MEDS: Enoxaparin Sodium 40 MG/0.4 ML SYRINGE SC SCH (10:09)
--- NOTE | 2017-01-22 10:48 | PDOC.PN ---
- Subjective Encounter Start Date: 01/22/17 Encounter Start Time: 07:20 Patient seen and examined. No new complaints. No overnight events - Objective Resuscitation Status: Resuscitation Status FULL:Full Resuscitation MAR Reviewed: Yes Vital Signs & Weight: Vital Signs (12 hours) Temp Pulse Resp BP Pulse Ox 01/22/17 10:08 54 L 01/22/17 08:00 97.6 F 54 L 16 106/57 L 98 01/22/17 04:00 98.6 F 64 20 104/51 L 99 01/22/17 00:00 98.3 F 56 L 20 115/68 99 Weight Weight 161 lb Most Recent Monitor Data Heart Rate from ECG 54 NIBP 107/63 NIBP BP-Mean 82 Respiration from ECG 15 SpO2 97 I&O: 01/21/17 01/22/17 01/23/17 06:59 06:59 06:59 Intake Total 2040 670 Output Total 2350 800 Balance -310 -130 Result Diagrams: 01/18/17 05:25 01/18/17 05:25 EKG Reviewed by me: Yes (nsr) Phys Exam - Physical Examination Constitutional: NAD HEENT: PERRLA, moist MMs, sclera anicteric Neck: no JVD, supple Respiratory: no wheezing, no rales, no rhonchi Cardiovascular: RRR, no significant murmur, no rub Gastrointestinal: soft, non-tender, no distention, positive bowel sounds Musculoskeletal: no edema, pulses present Neurological: non-focal, normal sensation Lymphatic: no nodes Psychiatric: normal affect, A&O x 3 Skin: no rash, normal turgor Dx/Plan (1) Acute ischemic left middle cerebral artery (MCA) stroke Code(s): I63.512 - CEREB INFRC D/T UNSP OCCLS OR STENOS OF LEFT MID CEREB ART Status: Acute (2) Cannabis abuse Code(s): F12.10 - CANNABIS ABUSE, UNCOMPLICATED Status: Chronic (3) Hypokalemia Code(s): E87.6 - HYPOKALEMIA Status: Resolved - Plan cont current plan of care, PT/OT, psychologist social, speech therapy * continue PT/OT, ST * await rehab placement * discussed with family * medication reviewed as below * symptomatic treatment Review of Systems - Review of Systems Constitutional: negative: Fever, Chills, Sweats, Weakness, Malaise, Other ENT: negative: Ear Pain, Ear Discharge, Nose Pain, Nose Discharge, Nose Congestion, Mouth Pain, Mouth Swelling, Throat Pain, Throat Swelling, Other Respiratory: negative: Cough, Dry, Shortness of Breath, Hemoptysis, SOB with Excertion, Pleuritic Pain, Sputum, Wheezing Cardiovascular: negative: Chest Pain, Palpitations, Orthopnea, Paroxysmal Noc. Dyspnea, Edema, Light Headedness, Other Gastrointestinal: negative: Nausea, Vomiting, Abdominal Pain, Diarrhea, Constipation, Melena, Hematochezia, Other Genitourinary: negative: Dysuria, Frequency, Incontinence, Hematuria, Retention , Other Musculoskeletal: negative: Neck Pain, Shoulder Pain, Arm Pain, Back Pain, Hand Pain, Leg Pain, Foot Pain, Other Skin: negative: Rash, Lesions, Regan, Bruising, Other Neurological: Weakness - Medications/Allergies Allergies/Adverse Reactions: Allergies Allergy/AdvReac Type Severity Reaction Status Date / Time No Known Drug Allergies Allergy Verified 01/17/17 21:29 Medications: Current Medications Acetaminophen (Tylenol) 650 mg PO Q4H PRN PRN Reason: Headache/Fever or Mild Pain Hydrocodone Bitart/Acetaminophen ([place] 5/325) 1 tab PO Q4H PRN PRN Reason: Moderate Pain (4-6) Al Hydroxide/Mg Hydroxide (Maalox) 15 ml PO Q4H PRN PRN Reason: Heartburn or Indigestion Artificial Tears (Tears Naturale) 0 drop EA EYE PRN PRN PRN Reason: Dry Eyes Aspirin (Aspirin) 325 mg PO DAILY [facility] Last Admin: 01/22/17 10:08 Dose: 325 mg Atorvastatin Calcium (Lipitor) 10 mg PO HS [facility] Last Admin: 01/21/17 20:49 Dose: 10 mg Enoxaparin Sodium (Lovenox) 40 mg SC 0900 [facility] Last Admin: 01/22/17 10:09 Dose: 40 mg Famotidine (Pepcid) 20 mg PO BID [facility] Last Admin: 01/22/17 10:08 Dose: 20 mg Guaifenesin (Robitussin Sf) 200 mg PO Q4H PRN PRN Reason: Cough Hydralazine HCl (Apresoline) 10 mg SLOW IVP Q4H PRN PRN Reason: Systolic BP > 180 Lisinopril (Zestril) 2.5 mg PO DAILY [facility] Last Admin: 01/22/17 10:08 Dose: 2.5 mg Loperamide HCl (Imodium) 2 mg PO PRN PRN PRN Reason: Diarrhea/Loose Stools Loratadine (Claritin) 10 mg PO DAILYPRN PRN PRN Reason: Sinus Symptoms Magnesium Hydroxide (Milk Of Magnesium) 30 ml PO DAILYPRN PRN PRN Reason: Constipation Mineral Oil/White Petrolatum (Eucerin Cream) 0 gm TOP BIDPRN PRN PRN Reason: Dry Skin Ondansetron HCl (Zofran Odt) 4 mg PO Q6H PRN PRN Reason: Nausea/Vomiting Ondansetron HCl (Zofran) 4 mg IVP Q6H PRN PRN Reason: Nausea/Vomiting Phenol (Chloraseptic [place] 180 Ml Bot) 0 ml PO PRN PRN PRN Reason: Sore Throat Last Admin: 01/19/17 22:55 Dose: 1 spr Senna (Senokot) 2 tab PO HSPRN PRN PRN Reason: Constipation Sodium Chloride ([place] Nasal [place] 0.65%) 0 ml EA NARE QIDPRN PRN PRN Reason: Nasal Congestion Sodium Chloride (Flush - Normal Saline) 10 ml IVF Q12HR [facility] Last Admin: 01/22/17 10:09 Dose: 10 ml Sodium Chloride (Flush - Normal Saline) 10 ml IVF PRN PRN PRN Reason: Saline Flush
[2017-01-22] MEDS: Atorvastatin Calcium 10 MG TAB PO SCH (20:42)
[2017-01-23] MEDS: Famotidine 20 MG TAB PO SCH ×2 (09:00→21:24)
[2017-01-23] MEDS: Lisinopril 2.5 MG TAB PO SCH (09:00)
[2017-01-23] MEDS: Aspirin 325 MG TAB PO SCH (09:00)
[2017-01-23] MEDS: Enoxaparin Sodium 40 MG/0.4 ML SYRINGE SC SCH (09:01)
--- NOTE | 2017-01-23 10:12 | PDOC.PN ---
- Subjective Encounter Start Date: 01/23/17 Encounter Start Time: 07:20 Patient seen and examined. No new complaints. No overnight events - Objective Resuscitation Status: Resuscitation Status FULL:Full Resuscitation MAR Reviewed: Yes Vital Signs & Weight: Vital Signs (12 hours) Temp Pulse Resp BP Pulse Ox 01/23/17 09:00 60 01/23/17 07:27 97.5 F L 60 20 108/55 L 98 01/23/17 04:33 97.8 F 53 L 18 101/52 L 99 01/23/17 01:37 98.1 F 55 L 16 102/51 L 98 Weight Weight 159 lb 8 oz Most Recent Monitor Data Heart Rate from ECG 54 NIBP 107/63 NIBP BP-Mean 82 Respiration from ECG 15 SpO2 97 I&O: 01/22/17 01/23/17 01/24/17 06:59 06:59 06:59 Intake Total 670 1895 Output Total 800 Balance -130 1895 Result Diagrams: 01/18/17 05:25 01/18/17 05:25 EKG Reviewed by me: Yes (nsr) Phys Exam - Physical Examination Constitutional: NAD HEENT: PERRLA, moist MMs, sclera anicteric Neck: no JVD, supple Respiratory: no wheezing, no rales, no rhonchi Cardiovascular: RRR, no significant murmur, no rub Gastrointestinal: soft, non-tender, no distention, positive bowel sounds Musculoskeletal: no edema, pulses present right side weakness Psychiatric: normal affect, A&O x 3 Skin: no rash, normal turgor Dx/Plan (1) Acute ischemic left middle cerebral artery (MCA) stroke Code(s): I63.512 - CEREB INFRC D/T UNSP OCCLS OR STENOS OF LEFT MID CEREB ART Status: Acute (2) Cannabis abuse Code(s): F12.10 - CANNABIS ABUSE, UNCOMPLICATED Status: Chronic (3) Hypokalemia Code(s): E87.6 - HYPOKALEMIA Status: Resolved - Plan cont current plan of care, plan discussed w/ family, PT/OT, high school social studies teacher, speech therapy * medically stable * await rehab placement * stroke team * medication reviewed as below * symptomatic treatment. Review of Systems - Review of Systems ENT: negative: Ear Pain, Ear Discharge, Nose Pain, Nose Discharge, Nose Congestion, Mouth Pain, Mouth Swelling, Throat Pain, Throat Swelling, Other Respiratory: negative: Cough, Dry, Shortness of Breath, Hemoptysis, SOB with Excertion, Pleuritic Pain, Sputum, Wheezing Cardiovascular: negative: Chest Pain, Palpitations, Orthopnea, Paroxysmal Noc. Dyspnea, Edema, Light Headedness, Other Gastrointestinal: negative: Nausea, Vomiting, Abdominal Pain, Diarrhea, Constipation, Melena, Hematochezia, Other Genitourinary: negative: Dysuria, Frequency, Incontinence, Hematuria, Retention , Other Musculoskeletal: negative: Neck Pain, Shoulder Pain, Arm Pain, Back Pain, Hand Pain, Leg Pain, Foot Pain, Other Skin: negative: Rash, Lesions, Regan, Bruising, Other Neurological: Weakness. negative: Numbness, Incoordination, Change in Speech, Confusion, Seizures, Other - Medications/Allergies Allergies/Adverse Reactions: Allergies Allergy/AdvReac Type Severity Reaction Status Date / Time No Known Drug Allergies Allergy Verified 01/17/17 21:29 Medications: Current Medications Acetaminophen (Tylenol) 650 mg PO Q4H PRN PRN Reason: Headache/Fever or Mild Pain Hydrocodone Bitart/Acetaminophen ([place] 5/325) 1 tab PO Q4H PRN PRN Reason: Moderate Pain (4-6) Al Hydroxide/Mg Hydroxide (Maalox) 15 ml PO Q4H PRN PRN Reason: Heartburn or Indigestion Artificial Tears (Tears Naturale) 0 drop EA EYE PRN PRN PRN Reason: Dry Eyes Aspirin (Aspirin) 325 mg PO DAILY [facility] Last Admin: 01/23/17 09:00 Dose: 325 mg Atorvastatin Calcium (Lipitor) 10 mg PO HS [facility] Last Admin: 01/22/17 20:42 Dose: 10 mg Enoxaparin Sodium (Lovenox) 40 mg SC 0900 [facility] Last Admin: 01/23/17 09:01 Dose: 40 mg Famotidine (Pepcid) 20 mg PO BID [facility] Last Admin: 01/23/17 09:00 Dose: 20 mg Guaifenesin (Robitussin Sf) 200 mg PO Q4H PRN PRN Reason: Cough Hydralazine HCl (Apresoline) 10 mg SLOW IVP Q4H PRN PRN Reason: Systolic BP > 180 Lisinopril (Zestril) 2.5 mg PO DAILY [facility] Last Admin: 01/23/17 09:00 Dose: 2.5 mg Loperamide HCl (Imodium) 2 mg PO PRN PRN PRN Reason: Diarrhea/Loose Stools Loratadine (Claritin) 10 mg PO DAILYPRN PRN PRN Reason: Sinus Symptoms Magnesium Hydroxide (Milk Of Magnesium) 30 ml PO DAILYPRN PRN PRN Reason: Constipation Mineral Oil/White Petrolatum (Eucerin Cream) 0 gm TOP BIDPRN PRN PRN Reason: Dry Skin Ondansetron HCl (Zofran Odt) 4 mg PO Q6H PRN PRN Reason: Nausea/Vomiting Ondansetron HCl (Zofran) 4 mg IVP Q6H PRN PRN Reason: Nausea/Vomiting Phenol (Chloraseptic [place] 180 Ml Bot) 0 ml PO PRN PRN PRN Reason: Sore Throat Last Admin: 01/19/17 22:55 Dose: 1 spr Senna (Senokot) 2 tab PO HSPRN PRN PRN Reason: Constipation Sodium Chloride ([place] Nasal [place] 0.65%) 0 ml EA NARE QIDPRN PRN PRN Reason: Nasal Congestion Sodium Chloride (Flush - Normal Saline) 10 ml IVF Q12HR [facility] Last Admin: 01/23/17 09:01 Dose: 10 ml Sodium Chloride (Flush - Normal Saline) 10 ml IVF PRN PRN PRN Reason: Saline Flush
[2017-01-23] MEDS: Atorvastatin Calcium 10 MG TAB PO SCH (21:24)
[2017-01-24] MEDS: Famotidine 20 MG TAB PO SCH ×2 (08:46→20:34)
[2017-01-24] MEDS: Enoxaparin Sodium 40 MG/0.4 ML SYRINGE SC SCH (08:46)
[2017-01-24] MEDS: Lisinopril 2.5 MG TAB PO SCH (08:46)
[2017-01-24] MEDS: Aspirin 325 MG TAB PO SCH (08:46)
--- NOTE | 2017-01-24 09:29 | PDOC.PN ---
- Subjective Encounter Start Date: 01/24/17 Encounter Start Time: 07:30 Patient seen and examined. No new complaints. No overnight events - Objective Resuscitation Status: Resuscitation Status FULL:Full Resuscitation MAR Reviewed: Yes Vital Signs & Weight: Vital Signs (12 hours) Temp Pulse Resp BP Pulse Ox 01/24/17 08:46 50 L 01/24/17 08:00 97.8 F 50 L 18 98 01/24/17 07:57 97.8 F 50 L 20 90/51 L 98 01/24/17 04:30 97.5 F L 53 L 16 93/53 L 98 01/24/17 00:00 98.2 F 66 20 97/47 L 96 Weight Weight 145 lb 3.2 oz Most Recent Monitor Data Heart Rate from ECG 54 NIBP 107/63 NIBP BP-Mean 82 Respiration from ECG 15 SpO2 97 I&O: 01/23/17 01/24/17 01/25/17 06:59 06:59 06:59 Intake Total 1895 240 480 Output Total 600 Balance 1895 -360 480 Result Diagrams: 01/18/17 05:25 01/18/17 05:25 EKG Reviewed by me: Yes (nsr) Phys Exam - Physical Examination Constitutional: NAD HEENT: PERRLA, moist MMs, sclera anicteric Neck: no JVD, supple Respiratory: no wheezing, no rales, no rhonchi Cardiovascular: RRR, no significant murmur, no rub Gastrointestinal: soft, non-tender, no distention, positive bowel sounds Musculoskeletal: no edema, pulses present right side weakness Psychiatric: normal affect, A&O x 3 Skin: no rash, normal turgor Dx/Plan (1) Acute ischemic left middle cerebral artery (MCA) stroke Code(s): I63.512 - CEREB INFRC D/T UNSP OCCLS OR STENOS OF LEFT MID CEREB ART Status: Acute (2) Cannabis abuse Code(s): F12.10 - CANNABIS ABUSE, UNCOMPLICATED Status: Chronic (3) Hypokalemia Code(s): E87.6 - HYPOKALEMIA Status: Resolved - Plan cont current plan of care, PT/OT, vp [employer] social media and crm, speech therapy * await rehab placement * meanwhile continue stroke team treatment * medication reviewed as below * symptomatic treatment * medically stable. Review of Systems - Review of Systems ENT: negative: Ear Pain, Ear Discharge, Nose Pain, Nose Discharge, Nose Congestion, Mouth Pain, Mouth Swelling, Throat Pain, Throat Swelling, Other Respiratory: negative: Cough, Dry, Shortness of Breath, Hemoptysis, SOB with Excertion, Pleuritic Pain, Sputum, Wheezing Cardiovascular: negative: Chest Pain, Palpitations, Orthopnea, Paroxysmal Noc. Dyspnea, Edema, Light Headedness, Other Gastrointestinal: negative: Nausea, Vomiting, Abdominal Pain, Diarrhea, Constipation, Melena, Hematochezia, Other Genitourinary: negative: Dysuria, Frequency, Incontinence, Hematuria, Retention , Other Musculoskeletal: negative: Neck Pain, Shoulder Pain, Arm Pain, Back Pain, Hand Pain, Leg Pain, Foot Pain, Other Skin: negative: Rash, Lesions, Regan, Bruising, Other - Medications/Allergies Allergies/Adverse Reactions: Allergies Allergy/AdvReac Type Severity Reaction Status Date / Time No Known Drug Allergies Allergy Verified 01/17/17 21:29 Medications: Current Medications Acetaminophen (Tylenol) 650 mg PO Q4H PRN PRN Reason: Headache/Fever or Mild Pain Hydrocodone Bitart/Acetaminophen ([place] 5/325) 1 tab PO Q4H PRN PRN Reason: Moderate Pain (4-6) Al Hydroxide/Mg Hydroxide (Maalox) 15 ml PO Q4H PRN PRN Reason: Heartburn or Indigestion Artificial Tears (Tears Naturale) 0 drop EA EYE PRN PRN PRN Reason: Dry Eyes Aspirin (Aspirin) 325 mg PO DAILY [facility] Last Admin: 01/24/17 08:46 Dose: 325 mg Atorvastatin Calcium (Lipitor) 10 mg PO HS [facility] Last Admin: 01/23/17 21:24 Dose: 10 mg Enoxaparin Sodium (Lovenox) 40 mg SC 0900 [facility] Last Admin: 01/24/17 08:46 Dose: 40 mg Famotidine (Pepcid) 20 mg PO BID [facility] Last Admin: 01/24/17 08:46 Dose: 20 mg Guaifenesin (Robitussin Sf) 200 mg PO Q4H PRN PRN Reason: Cough Hydralazine HCl (Apresoline) 10 mg SLOW IVP Q4H PRN PRN Reason: Systolic BP > 180 Lisinopril (Zestril) 2.5 mg PO DAILY [facility] Last Admin: 01/24/17 08:46 Dose: 2.5 mg Loperamide HCl (Imodium) 2 mg PO PRN PRN PRN Reason: Diarrhea/Loose Stools Loratadine (Claritin) 10 mg PO DAILYPRN PRN PRN Reason: Sinus Symptoms Magnesium Hydroxide (Milk Of Magnesium) 30 ml PO DAILYPRN PRN PRN Reason: Constipation Mineral Oil/White Petrolatum (Eucerin Cream) 0 gm TOP BIDPRN PRN PRN Reason: Dry Skin Ondansetron HCl (Zofran Odt) 4 mg PO Q6H PRN PRN Reason: Nausea/Vomiting Ondansetron HCl (Zofran) 4 mg IVP Q6H PRN PRN Reason: Nausea/Vomiting Phenol (Chloraseptic [place] 180 Ml Bot) 0 ml PO PRN PRN PRN Reason: Sore Throat Last Admin: 01/19/17 22:55 Dose: 1 spr Senna (Senokot) 2 tab PO HSPRN PRN PRN Reason: Constipation Sodium Chloride ([place] Nasal [place] 0.65%) 0 ml EA NARE QIDPRN PRN PRN Reason: Nasal Congestion Sodium Chloride (Flush - Normal Saline) 10 ml IVF Q12HR [facility] Last Admin: 01/24/17 08:59 Dose: Not Given Sodium Chloride (Flush - Normal Saline) 10 ml IVF PRN PRN PRN Reason: Saline Flush
[2017-01-24] MEDS: Atorvastatin Calcium 10 MG TAB PO SCH (20:33)
[2017-01-24 23:09] LABS: Activated Protein C Resistance 2.8 ratio (.)
[2017-01-25] MEDS: Aspirin 325 MG TAB PO SCH (10:28)
[2017-01-25] MEDS: Lisinopril 2.5 MG TAB PO SCH (10:28)
[2017-01-25] MEDS: Famotidine 20 MG TAB PO SCH ×2 (10:28→20:07)
[2017-01-25] MEDS: Enoxaparin Sodium 40 MG/0.4 ML SYRINGE SC SCH (10:29)
--- NOTE | 2017-01-25 11:31 | PDOC.PN ---
- Subjective Encounter Start Date: 01/25/17 Encounter Start Time: 07:30 Patient seen and examined. No new complaints. No overnight events - Objective Resuscitation Status: Resuscitation Status FULL:Full Resuscitation MAR Reviewed: Yes Vital Signs & Weight: Vital Signs (12 hours) Temp Pulse Resp BP Pulse Ox 01/25/17 11:26 98.5 F 65 20 111/65 98 01/25/17 10:28 65 01/25/17 08:00 97.5 F L 65 20 98 01/25/17 07:59 97.5 F L 65 20 98/52 L 98 01/25/17 03:49 97.8 F 57 L 18 88/53 L 97 Weight Weight 145 lb 7 oz Most Recent Monitor Data Heart Rate from ECG 54 NIBP 107/63 NIBP BP-Mean 82 Respiration from ECG 15 SpO2 97 I&O: 01/24/17 01/25/17 01/26/17 06:59 06:59 06:59 Intake Total 240 2160 480 Output Total 600 1450 Balance -360 710 480 Result Diagrams: 01/18/17 05:25 01/18/17 05:25 EKG Reviewed by me: Yes (nsr) Phys Exam - Physical Examination Constitutional: NAD HEENT: PERRLA, moist MMs, sclera anicteric Neck: no JVD, supple Respiratory: no wheezing, no rales, no rhonchi Cardiovascular: RRR, no significant murmur, no rub Gastrointestinal: soft, non-tender, no distention, positive bowel sounds Musculoskeletal: no edema, pulses present right side weakness Psychiatric: normal affect, A&O x 3 Skin: no rash, normal turgor Dx/Plan (1) Acute ischemic left middle cerebral artery (MCA) stroke Code(s): I63.512 - CEREB INFRC D/T UNSP OCCLS OR STENOS OF LEFT MID CEREB ART Status: Acute (2) Cannabis abuse Code(s): F12.10 - CANNABIS ABUSE, UNCOMPLICATED Status: Chronic (3) Hypokalemia Code(s): E87.6 - HYPOKALEMIA Status: Resolved - Plan cont current plan of care, PT/OT, social work associate, speech therapy * medication reviewed as below * symptomatic treatment * medically stable with current treatment * await rehab placement. Review of Systems - Review of Systems ENT: negative: Ear Pain, Ear Discharge, Nose Pain, Nose Discharge, Nose Congestion, Mouth Pain, Mouth Swelling, Throat Pain, Throat Swelling, Other Respiratory: negative: Cough, Dry, Shortness of Breath, Hemoptysis, SOB with Excertion, Pleuritic Pain, Sputum, Wheezing Cardiovascular: negative: Chest Pain, Palpitations, Orthopnea, Paroxysmal Noc. Dyspnea, Edema, Light Headedness, Other Gastrointestinal: negative: Nausea, Vomiting, Abdominal Pain, Diarrhea, Constipation, Melena, Hematochezia, Other Genitourinary: negative: Dysuria, Frequency, Incontinence, Hematuria, Retention , Other Musculoskeletal: negative: Neck Pain, Shoulder Pain, Arm Pain, Back Pain, Hand Pain, Leg Pain, Foot Pain, Other Skin: negative: Rash, Lesions, Regan, Bruising, Other - Medications/Allergies Allergies/Adverse Reactions: Allergies Allergy/AdvReac Type Severity Reaction Status Date / Time No Known Drug Allergies Allergy Verified 01/17/17 21:29 Medications: Current Medications Acetaminophen (Tylenol) 650 mg PO Q4H PRN PRN Reason: Headache/Fever or Mild Pain Hydrocodone Bitart/Acetaminophen ([place] 5/325) 1 tab PO Q4H PRN PRN Reason: Moderate Pain (4-6) Al Hydroxide/Mg Hydroxide (Maalox) 15 ml PO Q4H PRN PRN Reason: Heartburn or Indigestion Artificial Tears (Tears Naturale) 0 drop EA EYE PRN PRN PRN Reason: Dry Eyes Aspirin (Aspirin) 325 mg PO DAILY [facility] Last Admin: 01/25/17 10:28 Dose: 325 mg Atorvastatin Calcium (Lipitor) 10 mg PO HS [facility] Last Admin: 01/24/17 20:33 Dose: 10 mg Enoxaparin Sodium (Lovenox) 40 mg SC 0900 [facility] Last Admin: 01/25/17 10:29 Dose: 40 mg Famotidine (Pepcid) 20 mg PO BID [facility] Last Admin: 01/25/17 10:28 Dose: 20 mg Guaifenesin (Robitussin Sf) 200 mg PO Q4H PRN PRN Reason: Cough Hydralazine HCl (Apresoline) 10 mg SLOW IVP Q4H PRN PRN Reason: Systolic BP > 180 Lisinopril (Zestril) 2.5 mg PO DAILY [facility] Last Admin: 01/25/17 10:28 Dose: 2.5 mg Loperamide HCl (Imodium) 2 mg PO PRN PRN PRN Reason: Diarrhea/Loose Stools Loratadine (Claritin) 10 mg PO DAILYPRN PRN PRN Reason: Sinus Symptoms Magnesium Hydroxide (Milk Of Magnesium) 30 ml PO DAILYPRN PRN PRN Reason: Constipation Mineral Oil/White Petrolatum (Eucerin Cream) 0 gm TOP BIDPRN PRN PRN Reason: Dry Skin Ondansetron HCl (Zofran Odt) 4 mg PO Q6H PRN PRN Reason: Nausea/Vomiting Ondansetron HCl (Zofran) 4 mg IVP Q6H PRN PRN Reason: Nausea/Vomiting Phenol (Chloraseptic [place] 180 Ml Bot) 0 ml PO PRN PRN PRN Reason: Sore Throat Last Admin: 01/19/17 22:55 Dose: 1 spr Senna (Senokot) 2 tab PO HSPRN PRN PRN Reason: Constipation Sodium Chloride ([place] Nasal [place] 0.65%) 0 ml EA NARE QIDPRN PRN PRN Reason: Nasal Congestion Sodium Chloride (Flush - Normal Saline) 10 ml IVF Q12HR [facility] Last Admin: 01/25/17 10:29 Dose: Not Given Sodium Chloride (Flush - Normal Saline) 10 ml IVF PRN PRN PRN Reason: Saline Flush
[2017-01-25] MEDS: Atorvastatin Calcium 10 MG TAB PO SCH (20:07)
[2017-01-26] MEDS: Aspirin 325 MG TAB PO SCH (09:29)
[2017-01-26] MEDS: Famotidine 20 MG TAB PO SCH ×2 (09:29→21:08)
[2017-01-26] MEDS: Enoxaparin Sodium 40 MG/0.4 ML SYRINGE SC SCH (09:29)
[2017-01-26] MEDS: Lisinopril 2.5 MG TAB PO SCH (09:29)
--- NOTE | 2017-01-26 12:28 | PDOC.PN ---
- Subjective Encounter Start Date: 01/26/17 Encounter Start Time: 10:00 pt's family has not finished paperwork, so he did not qualify for rehab, overall he is stable - Objective Resuscitation Status: Resuscitation Status FULL:Full Resuscitation MAR Reviewed: Yes Vital Signs & Weight: Vital Signs (12 hours) Temp Pulse Resp BP Pulse Ox 01/26/17 11:46 98.1 F 88 20 90/51 L 98 01/26/17 09:29 60 01/26/17 08:10 97.6 F 60 20 01/26/17 08:00 97.6 F 60 20 106/60 99 01/26/17 04:16 98.2 F 58 L 16 112/52 L 98 01/26/17 00:46 97.9 F 82 18 135/72 97 Weight Weight 137 lb 8 oz Most Recent Monitor Data Heart Rate from ECG 54 NIBP 107/63 NIBP BP-Mean 82 Respiration from ECG 15 SpO2 97 I&O: 01/25/17 01/26/17 01/27/17 06:59 06:59 06:59 Intake Total 2160 1920 360 Output Total 1450 800 475 Balance 710 1120 -115 Result Diagrams: 01/18/17 05:25 01/18/17 05:25 EKG Reviewed by me: Yes (nsr) Phys Exam - Physical Examination Constitutional: NAD HEENT: PERRLA, moist MMs, sclera anicteric Neck: no JVD, supple Respiratory: no wheezing, no rales, no rhonchi Cardiovascular: RRR, no significant murmur, no rub Gastrointestinal: soft, non-tender, no distention, positive bowel sounds Musculoskeletal: no edema, pulses present right side weakness Lymphatic: no nodes Psychiatric: normal affect Skin: no rash, normal turgor Dx/Plan (1) Acute ischemic left middle cerebral artery (MCA) stroke Code(s): I63.512 - CEREB INFRC D/T UNSP OCCLS OR STENOS OF LEFT MID CEREB ART Status: Acute (2) Cannabis abuse Code(s): F12.10 - CANNABIS ABUSE, UNCOMPLICATED Status: Chronic (3) Hypokalemia Code(s): E87.6 - HYPOKALEMIA Status: Resolved - Plan cont current plan of care, PT/OT, hospital social worker * continue today and tomorrow PT/OT/ST * also educate family today about home therapy * will try to arrange [facility] home health if possible * plan for discharge tomorrow. * medication reviewed as below * symptomatic treatment Review of Systems - Review of Systems ENT: negative: Ear Pain, Ear Discharge, Nose Pain, Nose Discharge, Nose Congestion, Mouth Pain, Mouth Swelling, Throat Pain, Throat Swelling, Other Respiratory: negative: Cough, Dry, Shortness of Breath, Hemoptysis, SOB with Excertion, Pleuritic Pain, Sputum, Wheezing Cardiovascular: negative: chest pain, palpitations, orthopnea, paroxysmal nocturnal dyspnea, edema, light headedness, other Gastrointestinal: negative: Nausea, Vomiting, Abdominal Pain, Diarrhea, Constipation, Melena, Hematochezia, Other Genitourinary: negative: Dysuria, Frequency, Incontinence, Hematuria, Retention , Other Musculoskeletal: negative: Neck Pain, Shoulder Pain, Arm Pain, Back Pain, Hand Pain, Leg Pain, Foot Pain, Other Skin: negative: Rash, Lesions, Regan, Bruising, Other - Medications/Allergies Allergies/Adverse Reactions: Allergies Allergy/AdvReac Type Severity Reaction Status Date / Time No Known Drug Allergies Allergy Verified 01/17/17 21:29 peach Allergy Verified 01/25/17 12:50 Medications: Current Medications Acetaminophen (Tylenol) 650 mg PO Q4H PRN PRN Reason: Headache/Fever or Mild Pain Hydrocodone Bitart/Acetaminophen ([place] 5/325) 1 tab PO Q4H PRN PRN Reason: Moderate Pain (4-6) Al Hydroxide/Mg Hydroxide (Maalox) 15 ml PO Q4H PRN PRN Reason: Heartburn or Indigestion Artificial Tears (Tears Naturale) 0 drop EA EYE PRN PRN PRN Reason: Dry Eyes Aspirin (Aspirin) 325 mg PO DAILY [facility] Last Admin: 01/26/17 09:29 Dose: 325 mg Atorvastatin Calcium (Lipitor) 10 mg PO HS [facility] Last Admin: 01/25/17 20:07 Dose: 10 mg Enoxaparin Sodium (Lovenox) 40 mg SC 0900 [facility] Last Admin: 01/26/17 09:29 Dose: 40 mg Famotidine (Pepcid) 20 mg PO BID [facility] Last Admin: 01/26/17 09:29 Dose: 20 mg Guaifenesin (Robitussin Sf) 200 mg PO Q4H PRN PRN Reason: Cough Hydralazine HCl (Apresoline) 10 mg SLOW IVP Q4H PRN PRN Reason: Systolic BP > 180 Lisinopril (Zestril) 2.5 mg PO DAILY [facility] Last Admin: 01/26/17 09:29 Dose: 2.5 mg Loperamide HCl (Imodium) 2 mg PO PRN PRN PRN Reason: Diarrhea/Loose Stools Loratadine (Claritin) 10 mg PO DAILYPRN PRN PRN Reason: Sinus Symptoms Magnesium Hydroxide (Milk Of Magnesium) 30 ml PO DAILYPRN PRN PRN Reason: Constipation Mineral Oil/White Petrolatum (Eucerin Cream) 0 gm TOP BIDPRN PRN PRN Reason: Dry Skin Ondansetron HCl (Zofran Odt) 4 mg PO Q6H PRN PRN Reason: Nausea/Vomiting Ondansetron HCl (Zofran) 4 mg IVP Q6H PRN PRN Reason: Nausea/Vomiting Phenol (Chloraseptic [place] 180 Ml Bot) 0 ml PO PRN PRN PRN Reason: Sore Throat Last Admin: 01/19/17 22:55 Dose: 1 spr Senna (Senokot) 2 tab PO HSPRN PRN PRN Reason: Constipation Sodium Chloride ([place] Nasal [place] 0.65%) 0 ml EA NARE QIDPRN PRN PRN Reason: Nasal Congestion Sodium Chloride (Flush - Normal Saline) 10 ml IVF Q12HR [facility] Last Admin: 01/26/17 09:29 Dose: Not Given Sodium Chloride (Flush - Normal Saline) 10 ml IVF PRN PRN PRN Reason: Saline Flush
[2017-01-26] MEDS: Atorvastatin Calcium 10 MG TAB PO SCH (21:08)
[2017-01-27] MEDS: Famotidine 20 MG TAB PO SCH (08:57)
[2017-01-27] MEDS: Aspirin 325 MG TAB PO SCH (08:57)
[2017-01-27] MEDS: Enoxaparin Sodium 40 MG/0.4 ML SYRINGE SC SCH (08:58)
[2017-01-27] MEDS: Lisinopril 2.5 MG TAB PO SCH (08:58)
[2017-01-27 11:34] VITALS: TEMP 98.5
--- NOTE | 2017-01-27 12:12 | PDOC.PN ---
- Subjective Encounter Start Date: 01/27/17 Encounter Start Time: 12:11 Patient seen and examined. No new complaints. No overnight events - Objective Resuscitation Status: Resuscitation Status FULL:Full Resuscitation MAR Reviewed: Yes Vital Signs & Weight: Vital Signs (12 hours) Temp Pulse Resp BP BP Pulse Ox 01/27/17 11:13 98.5 F 80 16 103/63 99 01/27/17 08:58 73 98/57 L 01/27/17 08:00 97.7 F 73 16 99 01/27/17 07:35 97.7 F 73 16 98/57 L 99 01/27/17 04:45 97.9 F 65 14 93/57 L 99 Weight Weight 143 lb Most Recent Monitor Data Heart Rate from ECG 54 NIBP 107/63 NIBP BP-Mean 82 Respiration from ECG 15 SpO2 97 I&O: 01/26/17 01/27/17 01/28/17 06:59 06:59 06:59 Intake Total 1920 1440 Output Total 800 475 Balance 1120 965 Result Diagrams: 01/18/17 05:25 01/18/17 05:25 EKG Reviewed by me: Yes (nsr) Phys Exam - Physical Examination Constitutional: NAD HEENT: PERRLA, moist MMs, sclera anicteric Neck: no JVD, supple Respiratory: no wheezing, no rales, no rhonchi Cardiovascular: RRR, no significant murmur, no rub Gastrointestinal: soft, non-tender, no distention, positive bowel sounds Musculoskeletal: no edema, pulses present right side weakness Psychiatric: normal affect, A&O x 3 Skin: no rash, normal turgor Dx/Plan (1) Acute ischemic left middle cerebral artery (MCA) stroke Code(s): I63.512 - CEREB INFRC D/T UNSP OCCLS OR STENOS OF LEFT MID CEREB ART Status: Acute (2) Cannabis abuse Code(s): F12.10 - CANNABIS ABUSE, UNCOMPLICATED Status: Chronic (3) Hypokalemia Code(s): E87.6 - HYPOKALEMIA Status: Resolved - Plan cont current plan of care, nephrology social worker * medication reviewed as below * symptomatic treatment * see discharge summery * medically stable for discharge. Review of Systems - Review of Systems ENT: negative: Ear Pain, Ear Discharge, Nose Pain, Nose Discharge, Nose Congestion, Mouth Pain, Mouth Swelling, Throat Pain, Throat Swelling, Other Respiratory: negative: Cough, Dry, Shortness of Breath, Hemoptysis, SOB with Excertion, Pleuritic Pain, Sputum, Wheezing Cardiovascular: negative: chest pain, palpitations, orthopnea, paroxysmal nocturnal dyspnea, edema, light headedness, other Gastrointestinal: negative: Nausea, Vomiting, Abdominal Pain, Diarrhea, Constipation, Melena, Hematochezia, Other Genitourinary: negative: Dysuria, Frequency, Incontinence, Hematuria, Retention , Other Musculoskeletal: negative: Neck Pain, Shoulder Pain, Arm Pain, Back Pain, Hand Pain, Leg Pain, Foot Pain, Other Skin: negative: Rash, Lesions, Regan, Bruising, Other - Medications/Allergies Allergies/Adverse Reactions: Allergies Allergy/AdvReac Type Severity Reaction Status Date / Time No Known Drug Allergies Allergy Verified 01/17/17 21:29 peach Allergy Verified 01/25/17 12:50 Medications: Current Medications Acetaminophen (Tylenol) 650 mg PO Q4H PRN PRN Reason: Headache/Fever or Mild Pain Hydrocodone Bitart/Acetaminophen ([place] 5/325) 1 tab PO Q4H PRN PRN Reason: Moderate Pain (4-6) Al Hydroxide/Mg Hydroxide (Maalox) 15 ml PO Q4H PRN PRN Reason: Heartburn or Indigestion Artificial Tears (Tears Naturale) 0 drop EA EYE PRN PRN PRN Reason: Dry Eyes Aspirin (Aspirin) 325 mg PO DAILY [facility] Last Admin: 01/27/17 08:57 Dose: 325 mg Atorvastatin Calcium (Lipitor) 10 mg PO HS [facility] Last Admin: 01/26/17 21:08 Dose: 10 mg Enoxaparin Sodium (Lovenox) 40 mg SC 0900 [facility] Last Admin: 01/27/17 08:58 Dose: 40 mg Famotidine (Pepcid) 20 mg PO BID [facility] Last Admin: 01/27/17 08:57 Dose: 20 mg Guaifenesin (Robitussin Sf) 200 mg PO Q4H PRN PRN Reason: Cough Hydralazine HCl (Apresoline) 10 mg SLOW IVP Q4H PRN PRN Reason: Systolic BP > 180 Lisinopril (Zestril) 2.5 mg PO DAILY [facility] Last Admin: 01/27/17 08:58 Dose: Not Given Loperamide HCl (Imodium) 2 mg PO PRN PRN PRN Reason: Diarrhea/Loose Stools Loratadine (Claritin) 10 mg PO DAILYPRN PRN PRN Reason: Sinus Symptoms Magnesium Hydroxide (Milk Of Magnesium) 30 ml PO DAILYPRN PRN PRN Reason: Constipation Mineral Oil/White Petrolatum (Eucerin Cream) 0 gm TOP BIDPRN PRN PRN Reason: Dry Skin Ondansetron HCl (Zofran Odt) 4 mg PO Q6H PRN PRN Reason: Nausea/Vomiting Ondansetron HCl (Zofran) 4 mg IVP Q6H PRN PRN Reason: Nausea/Vomiting Phenol (Chloraseptic [place] 180 Ml Bot) 0 ml PO PRN PRN PRN Reason: Sore Throat Last Admin: 01/19/17 22:55 Dose: 1 spr Senna (Senokot) 2 tab PO HSPRN PRN PRN Reason: Constipation Sodium Chloride (Tool Nasal [place] 0.65%) 0 ml EA NARE QIDPRN PRN PRN Reason: Nasal Congestion Sodium Chloride (Flush - Normal Saline) 10 ml IVF Q12HR [facility] Last Admin: 01/27/17 08:58 Dose: Not Given Sodium Chloride (Flush - Normal Saline) 10 ml IVF PRN PRN PRN Reason: Saline Flush
--- NOTE | 2017-01-27 12:47 | DIS ---
PRIMARY CARE PHYSICIAN: [facility] call admission. DATE OF ADMISSION: 01/17/2017 DATE OF DISCHARGE: 01/27/2017 DISCHARGE DISPOSITION: Home with home health. PRIMARY DISCHARGE DIAGNOSES: 1. 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 2. Hypokalemia, corrected. SECONDARY DISCHARGE DIAGNOSES: Cannabis abuse. PRIMARY PROCEDURE/OPERATION: None. RADIOLOGICAL INVESTIGATION: CT brain on admission showed normal CT brain. CT angiography of head and neck with brain perfusion showed left MCA artery M1 branch clot. Echocardiography showed normal EF, no thrombus. Transesophageal echocardiography was also normal. MRI of brain showed left MCA territory infarct. Repeat CT brain was negative for any intracranial process. SIGNIFICANT LABORATORY: WBC 7.9, hemoglobin 14.9, platelets 160. INR 1.1. Factor VIII 238. D-dimer 0.77. Sodium 138, potassium 3.5, BUN 10, creatinine 0.75, calcium 8.6. LDL 55. Homocystine 6.73. LFTs normal. Urinalysis unremarkable. Urine drug screen positive for cannabinoids. CORI negative. Anticardiolipin antibody negative. Syphilis negative. Prothrombin [id number] mutation negative. DISCHARGE MEDICATIONS: Aspirin 325 mg p.o. daily, Lipitor 10 mg p.o. at bedtime , Pepcid 20 mg p.o. b.i.d., lisinopril 2.5 mg p.o. daily. CONTRAINDICATIONS: None. CODE STATUS: FULL CODE. INPATIENT CONSULTANTS: Dr. John Donaldson did the BENTON procedure. Dr. Jolley was consulted because the patient stayed in ICU. Dr. Sam Nieto, neurologist , was following while in hospital. Cardiology, Dr. Spring was consulted for transesophageal echocardiography. TEST RESULTS PENDING ON DISCHARGE: None. ALLERGIES: No known drug allergy. DISCHARGE PLAN: Post hospital, the patient will follow up with Neurology and primary care physician. HOSPITAL COURSE: A 26-year-old male who was admitted by Dr. Ordoñez, please see H&P for further details. This patient was admitted on 12/2016. He was doing outside activity at [employer] and the patient had acute onset of right upper and lower extremity weakness and aphasia. The patient was brought by his friend to the emergency room. It was unclear how long this patient was at the scene, but he was having dense right upper and lower extremity weakness with aphasia. Initially CT brain was negative, but CT head and neck with brain perfusion study showed a blood clot in the M1 branch of left MCA. The patient was taken for a BENTON procedure. After BENTON procedure the patient stayed in ICU for close monitoring. The patient stayed in ICU for 24 hours after procedure and then we transferred him to the stroke floor. Entire stroke team saw this patient, Pulmonary Critical Care saw this patient because the patient was in ICU. We did hypercoagulable workup and that is also unremarkable. His lipid profile is at good target as well as his blood pressure is also very good while in hospital. We do not know why he got left MCA territory stroke. We did a GLENYS, which was also normal. Echocardiography was also normal. At this point, the patient still has residual right upper and lower extremity weakness, but aphasia improving. Initially we were planning to let him go to rehab, but family member did not submit any paperwork for funding even after 10 days. At this point, the patient had some improvement with physical therapy point of view. The patient also decided to go home with family support. He is able to walk 128 feet by the time of discharge. The patient is seen and examined at bedside today. VITAL SIGNS: Currently, temperature 97.7, pulse 73, blood pressure 98/57, weight 143 pounds, saturation 99%. GENERAL: The patient is alert, oriented, no acute distress. HEENT: Head is normocephalic, atraumatic. Eyes: Pupils round, reactive to light. Extraocular muscles intact. ENT: Oropharynx within normal limits. Moist mucous membranes. No oral lesions. No pharyngeal erythema, no exudates. NECK: Supple, no JVD, no thyromegaly, no carotid bruit. No jugular venous distention. LUNGS: Clear to auscultation without any rhonchi. CARDIAC: S1, S2 regular without any significant murmur. ABDOMEN: Soft and benign. EXTREMITIES: No edema. NEUROLOGIC: The patient does have residual right upper and lower extremity weakness, but which is improving compared to admission. All new medication prescriptions sent to his pharmacy. We are trying to arrange home health upon discharge. The patient is medically stable for discharge, but he needs more PT, OT at home and follow up with primary care physician. Total time spent on discharge day more than 30 minutes. LOBITOD
[2017-01-27 14:09] VITALS: BP 115/75
== END 2017-01-27 17:54 | disposition home health service (06) | DRG 24 ==
LOC: ERS 16:40 → CCU 20:49 → SDC 21:09 → CCU 22:25 → 2SE 01-19 10:40
PROVIDERS: ADMIT Internal Medicine; ATTEND Internal Medicine
PROC: 3E03317 Introduction of Other Thrombolytic into Peripheral Vein, Percutaneous Approach (ICD-10-PCS; principal; 2017-01-17)
PROC: 03CG3ZZ Extirpation of Matter from Intracranial Artery, Percutaneous Approach (ICD-10-PCS; 2017-01-17)
PROC: B3171ZZ Fluoroscopy of Left Internal Carotid Artery using Low Osmolar Contrast (ICD-10-PCS; 2017-01-17)
PROC: B31R1ZZ Fluoroscopy of Intracranial Arteries using Low Osmolar Contrast (ICD-10-PCS; 2017-01-17)
PROC: B245ZZ4 Ultrasonography of Left Heart, Transesophageal (ICD-10-PCS; 2017-01-21)
DX: I63.312 Cerebral infarction due to thrombosis of left middle cerebral artery (principal); G81.91 Hemiplegia, unspecified affecting right dominant side; R47.01 Aphasia; E87.6 Hypokalemia; F12.10 Cannabis abuse, uncomplicated; R29.810 Facial weakness
CPT/HCPCS: 0042T; 36415; 36416; 37184; 51702; 70450; 70496; 70551; 71010; 75902; 80048; 80053; 80061; 80306; 81003; 81240; 82550; 83090; 85025; 85240; 85300; 85303; 85305; 85307; 85379; 85598; 85610; 85730; 86038; 86780; 93005; 93306; 93312; 94760; 96365; A4216; C1757; C1887; G8978-GP-CJ; G8978-GP-CK; G8979-GP-CI; G8987-GO-CL; G8988-GO-CJ; G8996-GN-CI; G8996-GN-CJ; G8997-GN-CH; G8997-GN-CI; J0461; J1650; J2704; J2997; S0028